=== PATIENT | male | born 1965 | race Caucasian/White ===

== ENCOUNTER → 2017-11-23 | Outpatient (CLI) | payer BC | LOC: M WUC 10:19 | DX: M54.2 Cervicalgia (principal); M54.6 Pain in thoracic spine ==

== ENCOUNTER → 2018-04-06 | Outpatient (CLI) | payer BC | LOC: M WUC 13:47 | DX: M54.6 Pain in thoracic spine (principal) | CPT/HCPCS: 72072 ==